=== PATIENT | female | born 1970 | race Caucasian/White ===

== ENCOUNTER 2020-11-06 05:13 | Emergency (ER) | payer OTHER, SELFPAY ==
[2020-11-06 05:11] VITALS: BP 123/87; PULSE 102; RESP 18; TEMP 36.7; O2SAT 96
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
[2020-11-06] MEDS: Amox. 875/Clav. 125, 2 TABS/BTL 1 TAB PO (05:33)
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
[2020-11-06 06:44] VITALS: BP 128/69; PULSE 75; RESP 16; O2SAT 99
== END 2020-11-06 07:19 | disposition home or self-care (01) ==
PROVIDERS: Emergency Provider Student in an Organized Health Care Education/Training Program
DX: S61.551A Open bite of right wrist, initial encounter (principal); Y04.1XXA Assault by human bite, initial encounter; S09.8XXA Other specified injuries of head, initial encounter; Y04.2XXA Assault by strike against or bumped into by another person, initial encounter
CPT/HCPCS: 29125; 99284; 70450; 70486; 73110